=== PATIENT | male | born 1980 | race Caucasian/White ===

== ENCOUNTER 2019-10-23 14:39 | Outpatient (CLI) | payer BC, SELFPAY ==
[2019-10-23 14:53] LABS: Basophils Absolute Auto 0.1 K/mm3 (0.0-0.1); Basophils Percent Auto 0.8 % (0.2-1.2); Eosinophils Absolute Auto 0.2 K/mm3 (0-0.3); Eosinophils Percent Auto 2.3 % (0-4.4); Hematocrit 47.6 % (42.0-52.0); Hemoglobin 16.3 g/dL (14.0-18.0); Immature Granulocyte Absolute 0.02 K/mm3 (0.00-0.031); Immature Granulocyte Percent A 0.2 % (0-0.5); Lymphocytes Absolute Auto 2.59 K/mm3 (0.9-3.2); Lymphocytes Percent Auto 29.9 % (18.3-44.2); Mean Corpuscular HGB Conc 34.2 g/dl (32-36); Mean Corpuscular Hemoglobin 31.2 pg (26-34); Mean Platelet Volume 8.8 fl (7.4-10.4); Monocytes Absolute Auto 0.8 K/mm3 (0.1-0.6); Monocytes Percent Auto 8.8 % (2.6-8.5); Platelet Count Result 263 k/mm3 (150-375); Red Blood Count 5.23 M/mm3 (4.6-6.20); Red Cell Distribution Width 11.9 % (11.5-14.5); White Blood Count 8.7 K/mm3 (4.5-10.0)
[2019-10-23 16:39] LABS: Rheumatoid Factor 18.5 IU/ML (<12)
[2019-10-23 16:43] LABS: CRP < 0.5 mg/dL (<1.0)
[2019-10-23 16:44] LABS: Erythrocyte Sedimentation Rate 4 mm/hr (0-20)
[2019-10-23 17:10] LABS: Hepatitis B Surface Antigen Negative (Negative)
[2019-10-23 17:28] LABS: Hepatitis B Surface Anti Res Negative; Hepatitis C Virus Antibody Negative (Negative)
[2019-10-26 12:50] LABS: HLA B27 Negative (Negative)
[2019-10-26 22:06] LABS: NIL 0.03 IU/mL; Quantiferon TB Plus, 1T NEGATIVE (NEGATIVE); TB1-NIL 0.01 IU/mL; TB2-NIL 0.03 IU/mL
[2019-10-27 11:26] LABS: Anti Cyclic Citrullinated Pept >250 Units (<20)
== END 2019-10-23 14:40 | disposition home or self-care (01) ==
PROVIDERS: PCP Family Medicine; Referring Provider Family Medicine; Visit Provider Internal Medicine
DX: M19.90 Unspecified osteoarthritis, unspecified site (principal)
CPT/HCPCS: 36415; 84550; 85025; 85652; 86038; 86039; 86140; 86200; 86430; 86480; 86706; 86803; 86812; 87340

== ENCOUNTER 2019-11-26 14:20 | Outpatient (CLI) | payer BC, SELFPAY ==
--- NOTE | ~2019-11-26 | XR_ITS ---
EXAMINATION: XR foot RT standing 2V INDICATION: Unspecified osteoarthritis TECHNIQUE: Two views of the right foot are obtained. COMPARISON: None available FINDINGS: There is no fracture, dislocation, or subluxation. There is mild osteoarthritis of the midf oot. Dorsal and plantar calcaneal enthesophytes are noted. The soft tissues are unremarkable. IMPRESSION: 1. Mild mid foot osteoarthritis. Reviewed, dictated and finalized at location A.
--- NOTE | ~2019-11-26 | XR_ITS ---
EXAMINATION: XR foot LT standing 2V INDICATION: Unspecified osteoarthritis TECHNIQUE: Two views of the left foot are obtained. COMPARISON: None FINDINGS: There is no fracture, dislocation, or subluxation. There is mild osteoarthritis of the midf oot. The soft tissues are unremarkable. IMPRESSION: 1. Mild mid foot osteoarthritis. Reviewed, dictated and finalized at location A.
--- NOTE | ~2019-11-26 | XR_ITS ---
EXAMINATION: HAND-BHARATHI ARTHRITIS 3+VIEWS DATE: 11/26/2019 15:18 INDICATION: Unspecified osteoarthritis TECHNIQUE: Posteroanterior, lateral, and oblique views of the left and of the right hands as well as a ballcatchers view of both hands were obtained. COMPARISON: None. FINDINGS: There is moderate osteoarthritis at the second metacarpophalangeal joint. Mild osteoarthritis is seen in multiple interphalangeal joints, at the first metacarpophalangeal joint, and at the radiocarpal a nd distal radioulnar joints. Subchondral lucencies are noted in multiple carpal bones as well as at t he base of the second metacarpal. The soft tissues are unremarkable. There is no fracture. There is mild osteoarthritis at the left radiocarpal and distal radioulnar joints. Subchondral lucenc ies are noted in multiple carpal bones of the left wrist. There is no fracture. Soft tissues are unre markable. IMPRESSION: 1. Polyarticular osteoarthritis without acute osseous findings. Reviewed, dictated and finalized at location A.
--- NOTE | ~2019-11-26 | MR_ITS ---
EXAMINATION: MR sacroiliac jcha wo/w con DATE: 11/26/2019 16:32 INDICATION: Dorsalgia, unspecified. Inflammatory arthritis. Low back pain. TECHNIQUE: Magnetic resonance imaging (MRI) of the sacroiliac joints was performed without and with 1 9 mL MultiHance intravenous contrast. Sequences included sagittal PD-weighted FS FSE and axial obliqu e and coronal oblique T2-weighted FS FSE, T1-weighted FSE, and postcontrast T1-weighted FS FSE. COMPARISON: CT abdomen and pelvis 08/16/2018 FINDINGS: Bone alignment is normal. No fracture. The sacroiliac joints demonstrate tiny osteophytes. There are no erosions or synovitis at the sacroiliac joints. IMPRESSION: 1. Mild osteoarthritis of the sacroiliac joints. No evidence of inflammatory arthropathy. Reviewed, dictated and finalized at location A. IMPRESSION: 1. Mild osteoarthritis of the sacroiliac joints. No evidence of inflammatory ar thropathy.
[2019-11-26 15:34] LABS: Estimated Glomerular Filt Rate > 60
== END 2019-11-26 14:21 | disposition home or self-care (01) ==
PROVIDERS: PCP Family Medicine; Visit Provider Internal Medicine
DX: M54.9 Dorsalgia, unspecified (principal); M19.90 Unspecified osteoarthritis, unspecified site; M53.3 Sacrococcygeal disorders, not elsewhere classified; M19.072 Primary osteoarthritis, left ankle and foot; M19.041 Primary osteoarthritis, right hand; M19.042 Primary osteoarthritis, left hand; M19.071 Primary osteoarthritis, right ankle and foot
CPT/HCPCS: 36415; 72197; 73130; 73620; A9577

== ENCOUNTER 2020-01-21 14:11 | Outpatient (CLI) | payer BC, SELFPAY ==
[2020-01-21 14:35] LABS: Hematocrit 46.4 % (42.0-52.0); Hemoglobin 15.8 g/dL (14.0-18.0); Mean Corpuscular HGB Conc 34.1 g/dl (32-36); Mean Corpuscular Hemoglobin 30.8 pg (26-34); Mean Corpuscular Volume 90.4 fl (80-100); Mean Platelet Volume 8.9 fl (7.4-10.4); Platelet Count Result 274 k/mm3 (150-375); Red Blood Count 5.13 M/mm3 (4.6-6.20); Red Cell Distribution Width 11.6 % (11.5-14.5); White Blood Count 9.3 K/mm3 (4.5-10.0)
[2020-01-21 16:35] LABS: Add Urine Microscopic? NO; Appearance Urine Clear (Clear); Bilirubin Urine Negative (Negative); Blood Urine Negative (Negative); Color Urine Yellow (Yellow); Glucose Urine UA Negative (Negative); Ketones Urine Negative (Negative); Leukocyte Esterase Ur Negative LEU/UL (Negative); Nitrate Urine Negative (Negative); Protein Urine Negative (Negative); Urobilinogen Urine Negative mg/dL (<2.0)
[2020-01-21 16:52] LABS: Alanine Aminotransferase 44 U/L (4-50); Albumin Level 4.9 g/dL (3.5-5.1); Alkaline Phosphatase 104 U/L (38-126); Aspartate Amino Transferase 36 U/L (17-59); Bilirubin,Total 0.4 mg/dL (0.2-1.3); Blood Urea Nitrogen 11 mg/dL (9-20); CRP 0.6 mg/dL (<1.0); Calcium 9.7 mg/dL (8.4-10.2); Carbon Dioxide 26 mmol/L (22-30); Chloride 101 mmol/L (98-107); Estimated Glomerular Filt Rate > 60; Glucose 79 mg/dL (75-110); Potassium 4.1 mmol/L (3.4-5.0); Sodium 137 mmol/L (137-145)
[2020-01-21 16:54] LABS: Complement C3 147 mg/dL (88-165); Erythrocyte Sedimentation Rate 6 mm/hr (0-20)
[2020-01-23 09:54] LABS: SS-A <1.0; SS-B <1.0
[2020-01-24 02:48] LABS: Hexagonal Phase Confirm Negative (Negative); Lupus dRVVT 1:1 Mix Interpreta Not Indicated; Lupus dRVVT Screen 38 sec (<=45); PTT-LA Screen 41 sec (<=40)
[2020-01-28 09:20] LABS: SM Antibody <1.0; SM/RNP Antibody <1.0
== END 2020-01-21 14:12 | disposition home or self-care (01) ==
LOC: ANHLAB 14:13
PROVIDERS: PCP Family Medicine; Visit Provider Internal Medicine
DX: M19.90 Unspecified osteoarthritis, unspecified site (principal)
CPT/HCPCS: 36415; 80053; 81003; 85027; 85598; 85613; 85652; 85730; 86140; 86160; 86225; 86235

== ENCOUNTER 2020-02-26 15:31 | Outpatient (CLI) | payer BC, SELFPAY ==
[2020-02-26 15:44] LABS: Hematocrit 49.6 % (42.0-52.0); Hemoglobin 16.6 g/dL (14.0-18.0); Mean Corpuscular HGB Conc 33.5 g/dl (32-36); Mean Corpuscular Hemoglobin 30.9 pg (26-34); Mean Corpuscular Volume 92.2 fl (80-100); Platelet Count Result 257 k/mm3 (150-375); Red Blood Count 5.38 M/mm3 (4.6-6.20); White Blood Count 8.1 K/mm3 (4.5-10.0)
[2020-02-26 16:30] LABS: Add Urine Microscopic? YES; Appearance Urine Cloudy (Clear); Bilirubin Urine Negative (Negative); Blood Urine Negative (Negative); Color Urine Amber (Yellow); Glucose Urine UA Negative (Negative); Ketones Urine Negative (Negative); Leukocyte Esterase Ur Negative LEU/UL (Negative); Mucus Urine Rare /lpf; Nitrate Urine Negative (Negative); Protein Urine Negative (Negative); RBC Urine 0-2 /hpf (0-2); Urobilinogen Urine Negative mg/dL (<2.0)
[2020-02-26 16:33] LABS: Amorphous Sediment Urine Few
[2020-02-26 16:35] LABS: WBC Urine 0-3 /hpf
[2020-02-26 16:53] LABS: Erythrocyte Sedimentation Rate 3 mm/hr (0-20)
[2020-02-26 18:23] LABS: Alanine Aminotransferase 37 U/L (4-50); Albumin Level 4.8 g/dL (3.5-5.1); Alkaline Phosphatase 101 U/L (38-126); Aspartate Amino Transferase 30 U/L (17-59); Bilirubin,Total 0.4 mg/dL (0.2-1.3); Blood Urea Nitrogen 13 mg/dL (9-20); CRP < 0.5 mg/dL (<1.0); Calcium 9.6 mg/dL (8.4-10.2); Carbon Dioxide 26 mmol/L (22-30); Chloride 102 mmol/L (98-107); Estimated Glomerular Filt Rate > 60; Glucose 104 mg/dL (75-110); Sodium 138 mmol/L (137-145)
== END 2020-02-26 15:32 | disposition home or self-care (01) ==
LOC: ANHLAB 15:34
PROVIDERS: PCP Family Medicine; Visit Provider Internal Medicine
DX: M05.79 Rheumatoid arthritis with rheumatoid factor of multiple sites without organ or systems involvement (principal); M19.90 Unspecified osteoarthritis, unspecified site
CPT/HCPCS: 36415; 80053; 81001; 85027; 85652; 86140

== ENCOUNTER 2020-04-13 15:01 | Outpatient (CLI) | payer BC, SELFPAY ==
[2020-04-13 15:15] LABS: Hematocrit 47.6 % (42.0-52.0); Hemoglobin 16.3 g/dL (14.0-18.0); Mean Corpuscular HGB Conc 34.2 g/dl (32-36); Mean Corpuscular Hemoglobin 30.8 pg (26-34); Mean Corpuscular Volume 89.8 fl (80-100); Mean Platelet Volume 8.9 fl (7.4-10.4); Platelet Count Result 284 k/mm3 (150-375); White Blood Count 7.5 K/mm3 (4.5-10.0)
[2020-04-13 16:28] LABS: Add Urine Microscopic? YES; Appearance Urine Clear (Clear); Bacteria Urine Trace /hpf; Bilirubin Urine Negative (Negative); Blood Urine Negative (Negative); Color Urine Yellow (Yellow); Glucose Urine UA Negative (Negative); Ketones Urine Negative (Negative); Leukocyte Esterase Ur Negative LEU/UL (Negative); Mucus Urine Rare /lpf; Nitrate Urine Negative (Negative); Protein Urine 1+ mg/dL (Negative); Specific Grav Ur 1.025 (1.001-1.035); Urobilinogen Urine Negative mg/dL (<2.0); WBC Urine 0-3 /hpf
[2020-04-13 16:42] LABS: Alanine Aminotransferase 59 U/L (4-50); Albumin Level 4.8 g/dL (3.5-5.1); Alkaline Phosphatase 89 U/L (38-126); Anion Gap 10 mmol/L (8-16); Aspartate Amino Transferase 43 U/L (17-59); Bilirubin,Total 0.6 mg/dL (0.2-1.3); Blood Urea Nitrogen 12 mg/dL (9-20); CRP < 0.5 mg/dL (<1.0); Calcium 9.8 mg/dL (8.4-10.2); Carbon Dioxide 26 mmol/L (22-30); Chloride 102 mmol/L (98-107); Estimated Glomerular Filt Rate > 60; Glucose 89 mg/dL (75-110); Potassium 4.2 mmol/L (3.4-5.0); Sodium 138 mmol/L (137-145)
[2020-04-13 16:44] LABS: Erythrocyte Sedimentation Rate 5 mm/hr (0-20)
== END 2020-04-13 15:02 | disposition home or self-care (01) ==
LOC: ANHLAB 15:02
PROVIDERS: PCP Family Medicine; Visit Provider Internal Medicine
DX: M05.79 Rheumatoid arthritis with rheumatoid factor of multiple sites without organ or systems involvement (principal); M19.90 Unspecified osteoarthritis, unspecified site
CPT/HCPCS: 36415; 80053; 81001; 85027; 85652; 86140

== ENCOUNTER 2020-09-14 14:57 | Outpatient (CLI) | payer BC, SELFPAY ==
[2020-09-14 15:16] LABS: Hematocrit 44.1 % (42.0-52.0); Hemoglobin 14.9 g/dL (14.0-18.0); Mean Corpuscular HGB Conc 33.8 g/dl (32-36); Mean Corpuscular Hemoglobin 31.6 pg (26-34); Mean Corpuscular Volume 93.6 fl (80-100); Mean Platelet Volume 8.9 fl (7.4-10.4); Platelet Count Result 278 k/mm3 (150-375); Red Blood Count 4.71 M/mm3 (4.6-6.20); Red Cell Distribution Width 11.9 % (11.5-14.5); White Blood Count 8.4 K/mm3 (4.5-10.0)
[2020-09-14 16:31] LABS: Add Urine Microscopic? YES; Appearance Urine Clear (Clear); Bilirubin Urine Negative (Negative); Blood Urine Negative (Negative); Color Urine Yellow (Yellow); Glucose Urine UA Negative (Negative); Ketones Urine Negative (Negative); Leukocyte Esterase Ur Negative LEU/UL (Negative); Mucus Urine Rare /lpf; Nitrate Urine Negative (Negative); Protein Urine Negative (Negative); RBC Urine 0-2 /hpf (0-2); Specific Grav Ur 1.015 (1.001-1.035); Urobilinogen Urine Negative mg/dL (<2.0)
[2020-09-14 16:51] LABS: Erythrocyte Sedimentation Rate 7 mm/hr (0-20)
[2020-09-14 17:00] LABS: Alanine Aminotransferase 30 U/L (4-50); Albumin Level 4.4 g/dL (3.5-5.1); Alkaline Phosphatase 85 U/L (38-126); Anion Gap 6 mmol/L (8-16); Aspartate Amino Transferase 31 U/L (17-59); Bilirubin,Total 0.5 mg/dL (0.2-1.3); Blood Urea Nitrogen 8 mg/dL (9-20); Calcium 9.2 mg/dL (8.4-10.2); Carbon Dioxide 30 mmol/L (22-30); Chloride 103 mmol/L (98-107); Estimated Glomerular Filt Rate > 60; Glucose 90 mg/dL (75-110); Potassium 4.2 mmol/L (3.4-5.0); Sodium 139 mmol/L (137-145)
[2020-09-14 17:20] LABS: CRP < 0.5 mg/dL (<1.0)
== END 2020-09-14 14:58 | disposition home or self-care (01) ==
LOC: ANHLAB 14:58
PROVIDERS: PCP Family Medicine; Visit Provider Internal Medicine
DX: M05.79 Rheumatoid arthritis with rheumatoid factor of multiple sites without organ or systems involvement (principal); M19.90 Unspecified osteoarthritis, unspecified site; Z79.899 Other long term (current) drug therapy
CPT/HCPCS: 36415; 80053; 81001; 85027; 85652; 86140

== ENCOUNTER 2021-01-13 14:29 | Outpatient (CLI) | payer BC, SELFPAY ==
[2021-01-13 14:47] LABS: Hematocrit 46.9 % (42.0-52.0); Hemoglobin 15.9 g/dL (14.0-18.0); Mean Corpuscular HGB Conc 33.9 g/dl (32-36); Mean Corpuscular Hemoglobin 31.7 pg (26-34); Mean Corpuscular Volume 93.6 fl (80-100); Mean Platelet Volume 8.9 fl (7.4-10.4); Platelet Count Result 310 k/mm3 (150-375); Red Blood Count 5.01 M/mm3 (4.6-6.20); Red Cell Distribution Width 12.1 % (11.5-14.5); White Blood Count 8.9 K/mm3 (4.5-10.0)
[2021-01-13 14:58] LABS: Add Urine Microscopic? YES
[2021-01-13 14:59] LABS: Appearance Urine Sl Cloudy (Clear); Color Urine Yellow (Yellow); Glucose Urine UA Negative (Negative); Protein Urine Negative (Negative); Specific Grav Ur 1.005 (1.001-1.035); pH Urine 6.5 (5.0-9.0)
[2021-01-13 15:00] LABS: Bilirubin Urine Negative (Negative); Blood Urine Negative (Negative); Ketones Urine Negative (Negative); Leukocyte Esterase Ur Negative LEU/UL (Negative); Nitrate Urine Negative (Negative); Urobilinogen Urine 0.2 mg/dL (<2.0)
[2021-01-13 15:05] LABS: Bacteria Urine None seen /hpf
[2021-01-13 15:06] LABS: Amorphous Sediment Urine Moderate; RBC Urine None seen /hpf (0-2); Squamous Epithelial Cell Urine Few /hpf (Few); WBC Urine None seen /hpf (0-3)
[2021-01-13 16:43] LABS: Alanine Aminotransferase 52 U/L (4-50); Albumin Level 4.9 g/dL (3.5-5.1); Alkaline Phosphatase 81 U/L (38-126); Anion Gap 8 mmol/L (8-16); Aspartate Amino Transferase 45 U/L (17-59); Bilirubin,Total 0.6 mg/dL (0.2-1.3); Blood Urea Nitrogen 10 mg/dL (9-20); CRP 0.5 mg/dL (<1.0); Calcium 10.4 mg/dL (8.4-10.2); Carbon Dioxide 29 mmol/L (22-30); Chloride 104 mmol/L (98-107); Estimated Glomerular Filt Rate > 60; Glucose 94 mg/dL (75-110); Potassium 4.1 mmol/L (3.4-5.0); Sodium 141 mmol/L (137-145)
[2021-01-13 18:08] LABS: Erythrocyte Sedimentation Rate 6 mm/hr (0-20)
== END 2021-01-13 14:30 | disposition home or self-care (01) ==
LOC: ANHLAB 14:33
PROVIDERS: PCP Family Medicine; Visit Provider Internal Medicine
DX: H20.9 Unspecified iridocyclitis (principal); M05.79 Rheumatoid arthritis with rheumatoid factor of multiple sites without organ or systems involvement; M19.90 Unspecified osteoarthritis, unspecified site; Z79.899 Other long term (current) drug therapy
CPT/HCPCS: 36415; 80053; 81001; 85027; 85652; 86140

== ENCOUNTER 2021-09-28 11:27 | Outpatient (CLI) | payer BC, SELFPAY ==
[2021-09-28 11:37] LABS: Hematocrit 47.4 % (42.0-52.0); Hemoglobin 15.6 g/dL (14.0-18.0); Mean Corpuscular HGB Conc 32.9 g/dl (32-36); Mean Corpuscular Hemoglobin 32.2 pg (26-34); Mean Corpuscular Volume 97.7 fl (80-100); Mean Platelet Volume 9.2 fl (7.4-10.4); Platelet Count Result 267 k/mm3 (150-375); Red Blood Count 4.85 M/mm3 (4.6-6.20); White Blood Count 5.7 K/mm3 (4.5-10.0)
[2021-09-28 13:07] LABS: Erythrocyte Sedimentation Rate 1 mm/hr (0-20)
[2021-09-28 13:12] LABS: Alanine Aminotransferase 29 U/L (4-50); Albumin Level 4.9 g/dL (3.5-5.1); Alkaline Phosphatase 91 U/L (38-126); Anion Gap 8 mmol/L (8-16); Aspartate Amino Transferase 71 U/L (17-59); Bilirubin,Total 0.8 mg/dL (0.2-1.3); Blood Urea Nitrogen 11 mg/dL (9-20); CRP < 0.5 mg/dL (<1.0); Calcium 9.5 mg/dL (8.4-10.2); Carbon Dioxide 27 mmol/L (22-30); Chloride 104 mmol/L (98-107); Estimated Glomerular Filt Rate > 60; Glucose 96 mg/dL (65-110); Sodium 139 mmol/L (137-145)
== END 2021-09-28 11:28 | disposition home or self-care (01) ==
PROVIDERS: Internal Medicine; PCP Family Medicine; Visit Provider Internal Medicine Hematology & Oncology
DX: M05.79 Rheumatoid arthritis with rheumatoid factor of multiple sites without organ or systems involvement (principal); M19.90 Unspecified osteoarthritis, unspecified site
CPT/HCPCS: 36415; 80053; 85027; 85652; 86140

== ENCOUNTER 2022-02-28 15:12 | Outpatient (CLI) | payer BC, SELFPAY ==
[2022-02-28 15:36] LABS: Basophils Absolute Auto 0.1 K/mm3 (0.0-0.1); Eosinophils Absolute Auto 0.1 K/mm3 (0-0.3); Eosinophils Percent Auto 1.5 % (0-4.4); Hematocrit 44.1 % (42.0-52.0); Hemoglobin 14.8 g/dL (14.0-18.0); Immature Granulocyte Absolute 0.04 K/mm3 (0.00-0.031); Immature Granulocyte Percent A 0.6 % (0-0.5); Lymphocytes Absolute Auto 1.99 K/mm3 (0.9-3.2); Lymphocytes Percent Auto 27.8 % (18.3-44.2); Mean Corpuscular HGB Conc 33.6 g/dl (32-36); Mean Corpuscular Hemoglobin 32.1 pg (26-34); Mean Corpuscular Volume 95.7 fl (80-100); Monocytes Absolute Auto 0.8 K/mm3 (0.1-0.6); Monocytes Percent Auto 11.5 % (2.6-8.5); Neutrophils Absolute Auto 4.1 K/mm3 (1.3-6.7); Neutrophils Percent Auto 57.6 % (45.5-73.1); Platelet Count Result 259 k/mm3 (150-375); Red Blood Count 4.61 M/mm3 (4.6-6.20); Red Cell Distribution Width 12.5 % (11.5-14.5); White Blood Count 7.2 K/mm3 (4.5-10.0)
[2022-02-28 16:38] LABS: Appearance Urine Clear (Clear); Bilirubin Urine Negative (Negative); Blood Urine Negative (Negative); Color Urine Yellow (Yellow); Glucose Urine UA Negative (Negative); Ketones Urine Trace mg/dL (Negative); Leukocyte Esterase Ur Negative LEU/UL (Negative); Nitrate Urine Negative (Negative); Protein Urine 1+ mg/dL (Negative); Specific Grav Ur 1.015 (1.001-1.035); Urobilinogen Urine 0.2 mg/dL (<2.0); pH Urine 8.5 (5.0-9.0)
[2022-02-28 16:43] LABS: Mucus Urine Rare /lpf; WBC Urine 0-3 /hpf
[2022-02-28 16:46] LABS: Add Urine Microscopic? YES
[2022-02-28 16:56] LABS: Erythrocyte Sedimentation Rate 6 mm/hr (0-20)
[2022-02-28 21:41] LABS: Alanine Aminotransferase 79 U/L (6-50); Albumin Level 4.4 g/dL (3.5-5.1); Alkaline Phosphatase 78 U/L (38-126); Anion Gap 3 mmol/L (8-16); Aspartate Amino Transferase 49 U/L (17-59); Bilirubin,Total 0.4 mg/dL (0.2-1.3); Blood Urea Nitrogen 9 mg/dL (9-20); Carbon Dioxide 28 mmol/L (22-30); Chloride 107 mmol/L (98-107); Estimated Glomerular Filt Rate > 60; Glucose 87 mg/dL (65-110); Potassium 4.1 mmol/L (3.4-5.0); Sodium 138 mmol/L (137-145)
== END 2022-02-28 15:13 | disposition home or self-care (01) ==
LOC: ANHLAB 15:13
PROVIDERS: PCP Family Medicine; Visit Provider Internal Medicine
DX: M06.9 Rheumatoid arthritis, unspecified (principal); Z79.899 Other long term (current) drug therapy
CPT/HCPCS: 36415; 80053; 81001; 85025; 85652

== ENCOUNTER 2022-07-22 12:52 | Outpatient (CLI) | payer BC, SELFPAY ==
[2022-07-22 13:01] LABS: Hematocrit 43.8 % (42.0-52.0); Hemoglobin 14.9 g/dL (14.0-18.0); Mean Corpuscular Hemoglobin 32.3 pg (26-34); Mean Platelet Volume 8.9 fl (7.4-10.4); Platelet Count Result 275 k/mm3 (150-375); Red Blood Count 4.61 M/mm3 (4.6-6.20); Red Cell Distribution Width 12.2 % (11.5-14.5); White Blood Count 9.8 K/mm3 (4.5-10.0)
[2022-07-22 14:25] LABS: Appearance Urine Clear (Clear); Bilirubin Urine Negative (Negative); Blood Urine Negative (Negative); Color Urine Yellow (Yellow); Glucose Urine UA Negative (Negative); Ketones Urine Negative (Negative); Leukocyte Esterase Ur Negative LEU/UL (Negative); Nitrate Urine Negative (Negative); Protein Urine Trace mg/dL (Negative); Urobilinogen Urine 0.2 mg/dL (<2.0); pH Urine 7.5 (5.0-9.0)
[2022-07-22 14:29] LABS: RBC Urine 0-2 /hpf (0-2); Squamous Epithelial Cell Urine Rare /hpf (Few); WBC Urine 0-3 /hpf
[2022-07-22 14:30] LABS: Add Urine Microscopic? YES
[2022-07-22 14:40] LABS: Alanine Aminotransferase 27 U/L (6-50); Albumin Level 4.9 g/dL (3.5-5.1); Alkaline Phosphatase 85 U/L (38-126); Anion Gap 6 mmol/L (8-16); Aspartate Amino Transferase 30 U/L (17-59); Bilirubin,Total 0.6 mg/dL (0.2-1.3); Blood Urea Nitrogen 12 mg/dL (9-20); CRP < 0.5 mg/dL (<1.0); Carbon Dioxide 27 mmol/L (22-30); Chloride 102 mmol/L (98-107); Estimated Glomerular Filt Rate > 60; Glucose 113 mg/dL (65-110); Potassium 3.7 mmol/L (3.4-5.0); Sodium 135 mmol/L (137-145)
[2022-07-22 14:50] LABS: Erythrocyte Sedimentation Rate 5 mm/hr (0-20)
== END 2022-07-22 12:53 | disposition home or self-care (01) ==
LOC: ANHLAB 12:53
PROVIDERS: PCP Family Medicine; Visit Provider Internal Medicine
DX: M05.79 Rheumatoid arthritis with rheumatoid factor of multiple sites without organ or systems involvement (principal); M19.90 Unspecified osteoarthritis, unspecified site
CPT/HCPCS: 36415; 80053; 81001; 85027; 85652; 86140

== ENCOUNTER 2023-03-01 13:48 | Outpatient (CLI) | payer BC, SELFPAY ==
[2023-03-01 14:03] LABS: Hematocrit 46.5 % (42.0-52.0); Hemoglobin 16.1 g/dL (14.0-18.0); Mean Corpuscular HGB Conc 34.6 g/dl (32-36); Mean Corpuscular Hemoglobin 32.4 pg (26-34); Mean Corpuscular Volume 93.6 fl (80-100); Mean Platelet Volume 9.1 fl (7.4-10.4); Platelet Count Result 299 k/mm3 (150-375); Red Blood Count 4.97 M/mm3 (4.6-6.20); Red Cell Distribution Width 11.7 % (11.5-14.5); White Blood Count 8.6 K/mm3 (4.5-10.0)
[2023-03-01 14:41] LABS: Appearance Urine Clear (Clear); Bilirubin Urine Negative (Negative); Blood Urine Negative (Negative); Color Urine Yellow (Yellow); Glucose Urine UA Negative (Negative); Ketones Urine Negative (Negative); Leukocyte Esterase Ur Negative LEU/UL (Negative); Nitrate Urine Negative (Negative); Protein Urine Negative (Negative); Specific Grav Ur 1.021 (1.001-1.035); Urobilinogen Urine 0.2 mg/dL (<2.0); pH Urine 6.5 (5.0-9.0)
[2023-03-01 14:47] LABS: Add Urine Microscopic? NO
[2023-03-01 15:01] LABS: Erythrocyte Sedimentation Rate 5 mm/hr (0-20)
[2023-03-01 16:25] LABS: Alanine Aminotransferase 50 U/L (6-50); Albumin Level 4.7 g/dL (3.5-5.1); Alkaline Phosphatase 100 U/L (38-126); Anion Gap 7 mmol/L (8-16); Aspartate Amino Transferase 37 U/L (17-59); Bilirubin,Total 0.5 mg/dL (0.2-1.3); Blood Urea Nitrogen 14 mg/dL (9-20); CRP < 0.5 mg/dL (<1.0); Calcium 9.5 mg/dL (8.4-10.2); Carbon Dioxide 28 mmol/L (22-30); Chloride 103 mmol/L (98-107); Estimated Glomerular Filt Rate > 60; Glucose 98 mg/dL (65-110); Sodium 138 mmol/L (137-145)
== END 2023-03-01 13:49 | disposition home or self-care (01) ==
PROVIDERS: Internal Medicine; PCP Family Medicine; Visit Provider Internal Medicine Hematology & Oncology
DX: M05.79 Rheumatoid arthritis with rheumatoid factor of multiple sites without organ or systems involvement (principal); M19.90 Unspecified osteoarthritis, unspecified site
CPT/HCPCS: 36415; 80053; 81003; 85027; 85652; 86140

== ENCOUNTER 2024-09-24 08:14 | Outpatient (CLI) | payer BC, SELFPAY ==
--- OUTSIDE RECORDS SUMMARY | 2024-09-24 08:32 | XMS_ITS | Referral Summary ---
Author Organization [facility] Address [address] [place] [address] Care Team Providers Care Kids Activities Coach Name Role Phone Lissy Zuñiga NP Primary Care Provider [phone] Encounters Date Type Department Care Team Description 08/13/2024 Telephone [facility] [address] [place] [address] Nikki Kendrick RPh Prior Auth (Rinvoq ) from Last 3 Months Allergies No known active allergies Medications lamoTRIgine (LaMICtal) 200 mg tablet daily 04/11/2018 Active QUEtiapine (SEROquel) 50 mg tablet Take 1 tablet (50 mg total) by mouth nightly at bedtime. 03/01/2021 Active amLODIPine (NORVASC) 5 mg tablet Take 1 tablet (5 mg total) by mouth daily 12/22/2023 Active omeprazole (PriLOSEC) 20 mg capsule Take 1 capsule (20 mg total) by mouth daily 03/18/2024 Active terbinafine (LamiSIL) 250 mg tablet Take 1 tablet (250 mg total) by mouth daily 03/18/2024 Active acyclovir (ZOVIRAX) 400 mg tabletIndicatio ns:Prophylaxis, Medical Take 1 tablet (400 mg total) by mouth daily 90 tablet 3 06/05/2024 Active Rinvoq 15 mg tablet extended release 24 hrIndications:R heumatoid arthritis involving multiple sites with positive rheumatoid factor (CMS/HCC) (HCC) Take 15 mg by mouth daily 90 tablet 1 08/12/2024 Active Active Problems Problem Noted Date Diagnosed Date Photophobia of right eye 03/25/2022 Assessment & Plan (04/02/2024 1:40 PM CDT): 2/2 iris atrophy/herpetic uveitis, recommend contact lens (CL) eval with Dr. 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 He may purchase SVN and glasses, as he is often frustrated with his bifocal lenses. 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 Not visually significant at this time. Continue to monitor. Assessment & Plan (09/05/2018 8:30 AM BENEFITS CLERK): -- NVS -- Observe Iris atrophy, right 12/02/2015 Assessment & Plan (05/03/2024 10:01 AM CDT): Contact lens (CL) eval for photophobia right eye (OD) Patient has not worn contact lenses before Pupil slightly decentered inf nasal Tried [employer] Driss Fraga in office - patient is bothered by comfort of lens, unsure if helping with light sensitivity Would like to try out at home, will give call if lens is working or wants to try custom Yves lens If proceed with Yves lens - may need to decenter pupil after initial lens arrives (U3, 54, 47) Educated on I&R and proper care of lenses RTC prn, if decides to move forward with yves will schedule when lens arrives Assessment & Plan (09/05/2018 8:29 AM BENEFITS CLERK): -- c/w HSV uveitis -- observe Chronic uveitis 12/02/2015 Overview (03/19/2020): Recurrent UL NG 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 No signs of inflammation noted today. Continue taking prophylactic Acyclovir, 400 mg PO Daily. Refill sent to pharmacy. RTC should signs or symptoms return. Assessment & Plan (03/25/2022 9:33 AM CDT): Herptic, normal intraocular pressure (IOP), RTC with flare, annual exam Assessment & Plan (03/26/2021 2:01 PM CDT): Current ocular medications Acyclovir 400mg daily Rinvoq and leflunomide for RA Dr. Ram is his shoe stitcher odd No inflammation on acyclovir (last flare 08/2018) Plan Continue acyclovir 400mg daily Q12m fu with Dr. Marie Assessment & Plan (10/06/2020 2:41 PM BENEFITS CLERK): Quiet today with normal intraocular pressure (IOP). Continue 400 mg Acyclovir daily. Assessment & Plan (03/19/2020 3:50 PM CDT): Current ocular medications Acyclovir 400mg daily Rinvoq and leflunomide for RA Dr. Ram is his shoe stitcher odd No inflammation on acyclovir (last flare 08/2018) Plan Continue acyclovir 400mg daily Q6m fu with Dr. 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 Maintain scheduled FUV with Dr. Banks Assessment & Plan (09/05/2018 8:30 AM BENEFITS CLERK): Symptoms and exam consistent with anterior uveitis flare. Possibly related to HSV, as he has been off acyclovir for the past 6 months. Also with hx of RA, has been off of systemic txt for years. -- IOP improved on combigan -- AC reaction improved on durezol q4h and acyclovir 400 mg 5x/day -- cyclogyl bid to prevent further synechiae -- Continue current regimen -- given that pt previously needed PO prednisone to quiet AC reaction, will schedule for follow up with Dr. Duran -- return precautions discussed Assessment & Plan (09/01/2018 3:49 PM BENEFITS CLERK): Symptoms and exam consistent with anterior uveitis flare. Possibly related to HSV, as he has been off acyclovir for the past 6 months. Also with hx of RA, has been off of systemic txt for years. With IOP spike to around 40. -- durezol q4h given 4+ AC cell -- cyclogyl bid -- combigan bid (avoiding LAURO given hx renal stones with stenting) -- acyclovir 400 mg 5x/day -- follow up with Dr. Duran in [facility] this week to recheck pressure and inflammation -- return precautions discussed Social History Tobacco Use Types Packs/Day Years Used Date Smoking Tobacco: Never Smokeless Tobacco: Never Alcohol Use Standard Drinks/Week Comments Never 0 (1 standard drink = 0.6 oz pur e alcohol) AUDIT-C Answer Date Recorded Q1: How often do you have a drink containing alcohol? 4 or more times a week 01/22/2024 Average Number of Drinks Not on file 024 Q3: How often do you have si x or more drinks on one occasion? Never 01/22/2024 Sex and Gender Information Value Date Recorded Sex Assigned at Not on file Legal Sex Male 10:04 AM BENEFITS CLERK Gender Identity Not on file Sexual Orientation Not on file Last Filed Vital Signs Vital Sign Reading Time Taken Comments Blood Pressure 133/85 01/22/2024 2:28 PM CDT Pulse 90 01/22/2024 2:28 PM CDT Temperature 36.9 ??C (98.4 ??F) 01/22/2024 2:28 PM CD T Respiratory Rate 16 04/30/2019 2:20 PM CDT Oxygen Saturation 95% 01/22/2024 2:28 PM CDT Inhaled Oxygen Concentration - - Weight 98.4 kg (217 lb) 01/22/2024 2:28 PM CDT Height 182.9 cm (6') 01/22/2024 2:28 PM CDT Body Mass Index 29.43 01/22/2024 2:28 PM CDT Plan of Treatment Not on file Medical Devices Implanted Type Area Pest Technician Device Identifier Shelf Expiration Date Model / Serial / Lot [employer] [id number] Inlay Kopperl 6fr 28cm Pusher Fluoro Marker Atraumatic Insertion Latex Free - [id number] Implanted:Qty: 1 on 04/30/2019 by Bandar Henley MD at [facility] Explanted:04/21 by Referral, Self (Quantity not on file) Right: Urethra [employer] [id number] 06/27/2023 [id number] / / [id number] Description:The patient was been instructed to remove the stent by pulling on the string in 3-4 days' Insurance [employer] OOS [employer] ACCESS BLUE ACCESS OOS BLUE ACCESS OOS Care Teams Kids Activities Coach Relationship Specialty Start Date End Date Lissy Zuñiga NP [address] [place] [id number] PCP - General Nurse Practitioner 09/01/23
--- OUTSIDE RECORDS SUMMARY | 2024-09-24 08:32 | XMS_ITS | Clinical Summary ---
Author Organization [facility] Address [address] [place] [address]. [place], [place] [address] [place] [address] Care Team Providers Care Hammer Shop Supervisor Name Role Phone Genny oMore Primary Care Provider [phone] Social History Tobacco Use Types Packs/Day Years Used Date Smoking Tobacco: Never Assessed Sex and Gender Information Value Date Recorded Sex Assigned at Not on file Legal Sex Male 7:47 PM CDT Gender Identity Not on file Sexual Orientation Not on file Last Filed Vital Signs Vital Sign Reading Time Taken Comments Blood Pressure 118/80 12/15/2014 1:16 PM CDT Pulse 73 12/15/2014 1:16 PM CDT Temperature - - Respiratory Rate - - Oxygen Saturation - - Inhaled Oxygen Concentration - - Weight 87.5 kg (193 lb) 12/15/2014 1:16 PM CDT Height 182.9 cm (6') 12/15/2014 1:16 PM CDT Body Mass Index 26.18 12/15/2014 1:16 PM CDT Plan of Treatment Health Maintenance Due Date Last Done Comments Colorectal Cancer Screening Colonoscopy (10 Years) 1978 Annual Physical 1981 Hepatitis C 1996 DTaP, Tdap and Td Vaccines ( 1 - Tdap) 1997 Hepatitis B Vaccines (1 of 3 - 19+ 3-dose series) 1997 COVID-19 Vaccine (2023-2 5 season) 2024 11/12/2020, 10/22/2020 Influenza Adult (#1) 2024 Meningococcal B Vaccine Aged Out No l onger eligible based on patient's age to complete this topic Meningococcal Vaccine Aged Out No sandee kamran eligible based on patient's age to complete this topic Pneumococcal Vaccine: Pediatrics (0 to 5 Years) and At-Risk Patients (6 to 64 Years) Aged Out No longer eligible b ased on patient's age to complete this topic RSV Immunizations Under 20 Months Aged Out No longer eligible b ased on patient's age to complete this topic Insurance [facility] Care Teams Hammer Shop Supervisor Relationship Specialty Start Date End Date Genny Moore DO PCP - General FAMILY PRACTICE 03/04/21
--- OUTSIDE RECORDS SUMMARY | 2024-09-24 08:32 | XMS_ITS | Encounter Summary ---
Author Organization [facility] [employer] [facility] Address [address] [place] [address] Phone Care Team Providers Care Account Manager Education Name Role Phone Genny Moore DO Primary Care Provider + Lissy Zuñiga NP Primary Care Provider [phone] Encounter Details Date Type Department Care Team (Late st Contact Info) Description 03/19/2019 Orders Only [facility] ([facility]) - [facility] [address] [place] [address] [place] [address] Beena Dupont MD [address] [place] [address] Research exam (Primary Dx) Social History Tobacco Use Types Packs/Day Years Used Date Smoking Tobacco: Never Smokeless Tobacco: Never Alcohol Use Standard Drinks/Week Comments Never 0 (1 standard drink = 0.6 oz pur e alcohol) AUDIT-C Answer Date Recorded Frequency of Alcohol Consumption Never 10/22/2018 Average Number of Drinks Not on file 019 Frequency of Binge Drinking Not on file 11/2018 Sex and Gender Information Value Date Recorded Sex Assigned at Not on file Legal Sex Male 10:04 AM MANUFACTURE SPECIALIST Gender Identity Not on file Sexual Orientation Not on file documented as of this encounter Plan of Treatment Not on file documented as of this encounter Visit Diagnoses Diagnosis Research exam- Primary documented in this encounter Care Teams Account Manager Education Relationship Specialty Start Date End Date Genny Moore DO [facility] [place] [address] PCP - General 07/12/17 08/31/23 Lissy Zuñiga NP [address] [place] [address] PCP - General Nurse Practitioner 09/01/23 documented as of this encounter
--- OUTSIDE RECORDS SUMMARY | 2024-09-24 08:32 | XMS_ITS | Clinical Summary ---
Author Organization [facility] Address [address] [place] [address] Care Team Providers Care Medicaid Biller Name Role Phone Lissy Zuñiga NP Primary Care Provider [phone] Allergies No known active allergies Medications lamoTRIgine [...] lenses. 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 Not visually significant at this time. Continue to monitor. Assessment & Plan (09/05/2018 8:30 AM BALL ASSEMBLER): -- NVS -- Observe Iris atrophy, right [...] is working or wants to try custom Atkinson lens If proceed with Atkinson lens - may need to decenter pupil after initial lens arrives (U3, 54, 47) Educated on I&R and proper care of lenses RTC prn, if decides to move forward with edgardo will schedule when lens arrives Assessment & Plan (09/05/2018 8:29 AM BALL ASSEMBLER): -- c/w HSV uveitis -- observe Chronic [...] leflunomide for RA Dr. Ram is his ged tutor No inflammation on acyclovir (last flare 08/2018) Plan Continue acyclovir 400mg daily Q12m fu with Dr. Marie Assessment & Plan (10/06/2020 2:41 PM BALL ASSEMBLER): Quiet today with normal intraocular pressure (IOP). Continue 400 mg Acyclovir daily. Assessment & Plan (03/19/2020 3:50 PM CDT): Current ocular medications Acyclovir 400mg daily Rinvoq and leflunomide for RA Dr. Ram is his ged tutor No inflammation on acyclovir (last flare 08/2018) Plan Continue acyclovir 400mg daily Q6m fu with Dr. 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 Maintain scheduled FUV with Dr. Banks Assessment & Plan (09/05/2018 8:30 AM BALL ASSEMBLER): Symptoms and exam consistent with anterior uveitis [...] discussed Assessment & Plan (09/01/2018 3:49 PM BALL ASSEMBLER): Symptoms and exam consistent with anterior uveitis [...] pressure and inflammation -- return precautions discussed Encounters Date Type Department Care Team Description 08/13/2024 Telephone [facility] [address] [place] [address] Nikki Kendrick RPh Prior Auth (Rinvoq ) from Last 3 Months Surgical History Surgery Date Site/Laterality Comments PERCUTANEOUS NEPHROLITHOTRIPSY VASECTOMY KIDNEY STONE SURGERY Medical History Medical History Date Comments Anterior uveitis 01/30/2014 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 12/02/2015 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 Chronic uveitis 12/02/2015 Attention deficit disorder of adult with hyperac tivity 03/02/2015 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 Rheumatoid arthritis (HCC) 01/30/2014 Kidney stones ADHD (attention deficit hyperactivity disorder) Family History Medical History Relation Name Comments No Known Problems Brother Cataracts Father Cataracts Mother Diabetes Neg Hx Glaucoma Neg Hx Macular degeneration Neg Hx Retinal detachment Neg Hx Thyroid disease Neg Hx Relation Name Status Comments Brother Alive Father Alive Mother Alive Social History Tobacco Use Types Packs/Day Years [...] on file Legal Sex Male 10:04 AM BALL ASSEMBLER Gender Identity Not on file Sexual Orientation Not on file Obstetrics History Last Filed Vital Signs Vital Sign Reading [...] 01/22/2024 2:28 PM CDT Plan of Treatment Health Maintenance Due Date Last Done Comments Colon Cancer Screening-Colonoscopy 1978 Depression Screening 1978 Hepatitis C Screening 1978 DTaP/Tdap/Td Vaccine (1 - Tdap) 1989 Hepatitis B Screening 1996 Regular Well Visit/Exam 18-64 1996 Influenza Vaccine (#1) 2024 HPV Vaccines Aged Out No longer eligi ble based on patient's age to complete this topic Pneumococcal vaccine <65 Aged Out No longer eligible based on patient's age to complete this topic Medical Devices Implanted Type Area Calender Roll Press Operator Device Identifier Shelf Expiration Date Model / Serial / Lot [employer] [id number] Inlay [place] 6fr 28cm Pusher Fluoro Marker Atraumatic Insertion Latex Free - [id number] Implanted:Qty: 1 on 04/30/2019 by Bandar Henley MD at [facility] Explanted:04/21 by Referral, Self (Quantity not on file) Right: Urethra [employer] [id number] 06/27/2023 [id number] / / [id number] Description:The patient was been instructed to remove the stent by pulling on the string in 3-4 [place] [address] [facility] OOS ANTHEM ACCESS CHOICE [employer] ACCESS BLUE ACCESS OOS BLUE ACCESS OOS Care Teams Medicaid Biller Relationship Specialty Start Date End Date Lissy Zuñiga NP [address] [place] [address] PCP - General Nurse Practitioner 09/01/23
--- NOTE | 2024-09-24 08:34 | ECG_ITS ---
Test Date: 2024-09-24 08:42:57 Measurements Intervals [place] Rate: 70 P: 48 HI: 163 QRS: -19 QRSD: 103 T: -4 QT: 372 QTc: 403 Interpretive Statements SINUS RHYTHM INCOMPLETE RIGHT BUNDLE BRANCH BLOCK BORDERLINE T WAVE ABNORMALITY- INFERIOR LEADS BASELINE ARTIFACT- I, II, III, AVR, AVL, AVF BORDERLINE ECG No previous ECG available for comparison Electronically Signed On 09-24-2024 08:48:34 CUT OUT AND MARKING MACHINE OPERATOR by Ion Carrillo D.O.
== END 2024-09-24 08:15 | disposition home or self-care (01) ==
LOC: ANHSURGERY 08:20
PROVIDERS: PCP Nurse Practitioner Family; Visit Provider Surgery
DX: I10 Essential (primary) hypertension (principal); Z01.818 Encounter for other preprocedural examination
CPT/HCPCS: 93005

== ENCOUNTER 2024-09-30 03:10 | Day surgery (SDC) | payer BC, SELFPAY ==
[2024-09-18 13:45] VITALS: BMI 29.1
--- NOTE | 2024-09-18 14:22 | PC.NURSE ---
Report to the Outpatient Waiting Room, entrance under the green pavilion located off [facility], at time _10:00 on date _09/30/24 . Planned Procedure Time: _12:00 .? Time changes happen often and if your time is changed the preop area will call you the afternoon before. - You and your visitor will be asked to self-screen and do not enter if you have any COVID symptoms. Please call surgeon if you need to reschedule. - A mask is optional within the hospital at this time. Patients may have clear liquids (water, carbonated beverages, clear teas, apple juice) until 3 hours prior to surgery with a maximum of 20 ounces. - No food from midnight until time of surgery and no smoking. This includes no chewing gum, candy or mints. - Infants may have breast milk until 4 hours before surgery, infant formula 6 hours prior to surgery. - Children will be allowed to drink immediately following surgery.? If applicable, please bring a bottle or sippy cup to assist with drinking. Juice, water, soda, and popsicles are readily available.? For infants on formula, please bring formula the day of surgery.? Pacifiers are allowed. Take only the following medications with a SIP of water on the morning of surgery: _N/A DO NOT STOP ANY OF YOUR OTHER PRESCRIPTION MEDICATIONS PRIOR TO SURGERY EXCEPT THE FOLLOWING Medications to discontinue per physician __N/A Date to take last dose Please no make-up, nail romanian, hairspray, perfume, deodorant, or body powder the day of surgery.? No jewelry (including any body piercings) or valuables the day of surgery, leave them at home.? Please take a shower or bath the night before, or the morning of, surgery with an antibacterial soap.? Wear comfortable, loose fitting clothing.? Children are encouraged to wear pajamas. - Jewelry must be removed prior to entering the operating room.? Rings and piercings that are not removed may be cut off. - The hospital will not accept responsibility for valuables.? - Please leave all valuables, including medications, at home the day of surgery. If you are going home after surgery, a licensed seasonal delivery driver must drive you home.? - NO public transportation without another adult if you receive anesthesia. - We recommend that an adult stay with you for 24 hours following discharge. - We also recommend that you do not drive, make important decision, drink alcoholic beverages, or take any drugs that were not prescribed by your health care provider for at least 24 hours after your discharge time. For Pediatric surgeries, we recommend two adults accompany the child home. Hold all vitamins and supplements for 3 days per anesthesiologist. Follow any additional instructions given to you from your surgeon. Telephone instructions given to Haresh and asked if any additional questions and then verbalized understanding. Patient advised to call surgeon office or pre surgery nurse liaison [phone] if any additional questions.
[2024-09-30] VITALS (10 sets, daily range): BP systolic 94–139; BP diastolic 59–100; PULSE 67–78; RESP 12–18; TEMP 36.3; O2SAT 96–99; BMI 4107.1; BMI 28.5
--- OUTSIDE RECORDS SUMMARY | 2024-09-30 03:17 | XMS_ITS ---
Author Organization [facility] Address [address] [place] [address] Care Team Providers Care National Sales Name Role Phone Milagro Arellano Primary Care Provider REASON FOR VISIT med refill Encounters Encounter Location Date Provider Diagnosis [address] [place] [address] 08/19/2024 Milagro Arellano Plan Of Treatment No Information Progress Notes * Jina CARDOZAOB:1980 (44 yo M)Acc No.[id number]:08/19/2024 Patient: Patrice MADRIDLIANAAbielen :1980 A ge:44 Y S ex:Male Address:[address] [place], [address] * true * Date: Generated for Dudleyi ng/Farkg/eTransmitting on: 0 09/30/2024 03:17 AM DIAL MOUNTER
--- OUTSIDE RECORDS SUMMARY | 2024-09-30 03:18 | XMS_ITS | Referral Summary ---
Author Organization [facility] Address [address] [place] [address] Care Team Providers Care Account Development Specialist Name Role Phone Lissy Zuñiga NP Primary Care Provider [phone] Encounters Date Type Department Care Team Description 08/13/2024 Telephone [facility] [address] [place] [address] Nikki Kendrick RPh Prior Auth [...] lenses. 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 Not visually significant at this time. Continue to monitor. 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 Marie Assessment & Plan (10/06/2020 2:41 PM CHILD DEVELOPMENT DIRECTOR): Quiet today with normal intraocular pressure (IOP). Continue 400 mg Acyclovir daily. 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 Maintain scheduled FUV with Dr. Banks Assessment & Plan (09/05/2018 8:30 AM CHILD DEVELOPMENT DIRECTOR): Symptoms and exam consistent with anterior uveitis [...] discussed Assessment & Plan (09/01/2018 3:49 PM CHILD DEVELOPMENT DIRECTOR): Symptoms and exam consistent with anterior uveitis [...] on file Legal Sex Male 10:04 AM CHILD DEVELOPMENT DIRECTOR Gender Identity Not on file Sexual Orientation Not on file Last Filed Vital Signs Vital Sign Reading Time Taken Comments Blood Pressure 133/85 01/22/2024 2:28 PM CDT Pulse 90 01/22/2024 2:28 PM CDT Temperature 36.9 C (98.4 F) 01/22/2024 2:28 PM CDT Respiratory Rate 16 04/30/2019 2:20 PM CDT Oxygen Saturation 95% 01/22/2024 2:28 PM CDT Inhaled Oxygen Concentration - - Weight 98.4 kg (217 lb) 01/22/2024 2:28 PM CDT Height 182.9 cm (6') 01/22/2024 2:28 PM CDT Body Mass Index 29.43 01/22/2024 2:28 PM CDT Plan of Treatment Not on file Medical Devices Implanted Type Area Linux Admin Device Identifier Shelf Expiration Date Model / Serial / Lot [employer] [id number] Inlay Kahlotus 6fr 28cm Pusher Fluoro Marker Atraumatic Insertion Latex Free - [id number] Implanted:Qty: 1 on 04/30/2019 by Bandar Henley MD at [facility] Explanted:04/21 by Referral, Self (Quantity not on file) Right: Urethra [employer] [id number] 06/27/2023 [id number] / / [id number] Description:The patient was been instructed to remove the stent by pulling on the string in 3-4 days' Insurance [employer] OOS [employer] CHOICE [employer] ACCESS BLUE ACCESS OOS BLUE ACCESS OOS Care Teams Account Development Specialist Relationship Specialty Start Date End Date Lissy Zuñiga NP [address] [place] [id number] PCP - General Nurse Practitioner 09/01/23
--- OUTSIDE RECORDS SUMMARY | 2024-09-30 03:18 | XMS_ITS | Patient Health Record ---
Author Organization [facility] Address [address] [place] [address] Care Team Providers Care Data Center Technician Name Role Phone Milagro Arellano Primary Care Provider Allergies Allergen (clinical drug ingredient) Drug/Non Drug Allergy documented on EMR Reaction Allergy Type Onset Date Status No Known Drug Allergy Unknown Drug Allergy Active Reason For Referral No Information Medications Medication SIG (Take, Route, Frequency, Duration) Notes Start Date End Date Status lamoTRIgine 200 MG 1 tablet Orally Once a day for 90 days Active QUEtiapine Fumarate 50 MG 1 tablet at be dtime Orally Once a day for 90 days Active amLODIPine Besylate 5 MG 1 tablet Orally Once a day for 90 days Active Rinvoq 15 MG Oral for 30 Days Active Social History Tobacco Use: Social History Observation Description Date Details (start date - stop date) Never Smoker NA - NA Dont use, Tobacco Use/Smoking Question Answer Notes Are you a nonsmoker Tobacco Control (Standard) Question Answer Notes Tobacco use: Nonsmoker Problems Problem Type SNOMED Code ICD Code Onset Dates Problem Status W/U Status Risk Notes Problem 38201655 Cyclothymia (F34.0) Active confirmed Encounters Encounter Location Date Provider Diagnosis [facility] [place] [address] 11/29/2023 Milagro Arellano Cyclothymia F34.0 [facility] [place] [address] 02/27/2024 Milagro Arellano Cyclothymia F34.0 [facility] [address] [place] [address] 06/05/2024 Milagro Arellano Cyclothymia F34.0 [facility] [place] [address] 09/04/2024 Milagro Arellano Cyclothymia F34.[address] [place] [address] 11/20/2023 Milagro Arellano Cyclothymia F34.0 [facility] [address] [place] [address] 02/12/2024 Milagro Arellano Cyclothymia F34.[address] [place] [address] 08/19/2024 Milagro Arellano Assessments Encounter Date Diagnosis (ICD Code) Assessment Notes Treatment Notes Treatment Clinical Notes Section Notes 09/04/2024 Cyclothymia (ICD-10 - F34.0) Continue current medications. Discussed adding Magnesium Glycinolate OTC for sleep. Continue services as scheduled. Labs completed recently. May self-administer medications or be administered own oral medications per [facility] protocols. Provided informed consent with understanding of side effects, adverse effects, risks and benefits as well as alternative treatments as previously discussed and with the above recommended medications & other aspects of the treatment program. Agrees to return sooner if symptoms worsen or suicidal or homicidal ideations occur. 06/05/2024 Cyclothymia (ICD-10 - F34.0) Continue current medications. Continue services as scheduled. Labs completed recently. May self-administer medications or be administered own oral medications per [facility] protocols. Provided informed consent with understanding of side effects, adverse effects, risks and benefits as well as alternative treatments as previously discussed and with the above recommended medications & other aspects of the treatment program. Agrees to return sooner if symptoms worsen or suicidal or homicidal ideations occur. 02/27/2024 Cyclothymia (ICD-10 - F34.0) Continue current medications. Continue services as scheduled. Labs completed recently. May self-administer medications or be administered own oral medications per [facility] protocols. Provided informed consent with understanding of side effects, adverse effects, risks and benefits as well as alternative treatments as previously discussed and with the above recommended medications & other aspects of the treatment program. Agrees to return sooner if symptoms worsen or suicidal or homicidal ideations occur. 02/12/2024 Cyclothymia (ICD-10 - F34.0) 11/29/2023 Cyclothymia (ICD-10 - F34.0) Continue current medications. Continue services as scheduled, following up with PCP, has an appointment soon. Labs completed recently. May self-administer medications or be administered own oral medications per [place] protocols. Provided informed consent with understanding of side effects, adverse effects, risks and benefits as well as alternative treatments as previously discussed and with the above recommended medications & other aspects of the treatment program. Agrees to return sooner if symptoms worsen or suicidal or homicidal ideations occur. 11/20/2023 Cyclothymia (ICD-10 - F34.0) Plan Of Treatment Pending Test Test Name Order Date Hemoglobin A1c* 03/10/2023 Vitamin B12* 03/10/2023 CBC With Differential/Platelet* 03/10/20 23 Vitamin D, 25-Hydroxy* 03/10/2023 TSH+Free T4* 03/10/2023 Lipid Panel* 03/10/2023 Insurance Providers Payer Name Payer Address Payer Phone Subscriber Number Group Number Insured Name Patient Relationship to Insured Coverage Start Date Coverage End Date [facility] [address] [place] [address] [id number] Bill Cardoza Self - patient is the insured 3 Medical (General) History Medical History History ICD Code Hypertension Surgical History Surgery Date(Month/Year)
--- OUTSIDE RECORDS SUMMARY | 2024-09-30 03:18 | XMS_ITS ---
Author Organization [facility] Address [address] [place] [address] Care Team Providers Care Machine Operator Transplanter Name Role Phone Milagro Arellano Primary Care Provider Allergies Allergen (clinical drug ingredient) Drug/Non Drug Allergy documented on EMR Reaction Allergy Type Onset Date Status No Known Drug Allergy Unknown Drug Allergy Active REASON FOR VISIT f/u Medications Medication SIG (Take, Route, Frequency, Duration) [...] stop date) Never Smoker NA - NA Tobacco Control (Standard) Question Answer Notes Tobacco use: Nonsmoker Encounters Encounter Location Date Provider Diagnosis [address] [place] [address] 09/04/2024 Milagro Arellano Cyclothymia F34.0 Assessments Encounter Date Diagnosis (ICD Code) Assessment Notes Treatment Notes Treatment Clinical Notes Section Notes 09/04/2024 Cyclothymia (ICD-10 - F34.0) Continue current medications. Discussed adding Magnesium Glycinolate OTC for sleep. Continue services as scheduled. Labs completed recently. May self-administer medications or be administered own oral medications per [place] protocols. Provided informed consent with understanding of side effects, adverse effects, risks and benefits as well as alternative treatments as previously discussed and with the above recommended medications & other aspects of the treatment program. Agrees to return sooner if symptoms worsen or suicidal or homicidal ideations occur. Plan Of Treatment Medication Medication Name Sig Start Date Stop Date Notes lamoTRIgine 200 MG 1 tablet Orally Once a day for 90 days QUEtiapine Fumarate 50 MG 1 tablet at be dtime Orally Once a day for 90 days Treatment Notes Assessment Notes Cyclothymia Continue current medications. Discussed adding Magnesium Glycinolate OTC for sleep. Continue services as scheduled. Labs completed recently. May self-administer medications or be administered own oral medications per [place] protocols. Provided informed consent with understanding of side effects, adverse effects, risks and benefits as well as alternative treatments as previously discussed and with the above recommended medications & other aspects of the treatment program. Agrees to return sooner if symptoms worsen or suicidal or homicidal ideations occur. Next Appt Details Follow Up: 3 Months, Reason: Medication management - can be telehealth appt. Progress Notes * Jina AMADOROB:1980 (44 yo M)Acc No.[id number]:09/04/2024 Patient: Bill RUVALCABA Provider: Carlyn Arellano DNP, PMDENIZP-SEJAL, FINISHING INSPECTOR :1980 A ge:44 Y S ex:Male Date:09/04/2024 Address:[address] [place] [address] , [facility] Subjective: * Chief Complaints: * F /u * HPI: D epression Screening: PHQ-9 L ittle interest or pleasure in doing things?Not at all F eeling down, depressed, or hopeless N ot at all T rouble falling or staying asleep, or sleeping too much N ot at all F eeling tired or having little energy N ot at all P oor appetite or overeating S everal days F eeling bad about yourself or that you are a failure, or have let yourself or your family down N ot at all T rouble concentrating on things, such as reading the newspaper or watching television N ot at all M oving or speaking so slowly that other people could have noticed; or the opposite, being so fidgety or restless that you have been moving around a lot more than usual N ot at all T houghts that you would be better off or of hurting yourself in some way N ot at all T otal Score 1 I nterpretation M inimal Depression Intervention D epression Screening Findings N egative F ollow-Up for Depression N o Referral necessary, patient involved in behavioral health treatment . S creening: [place] Suicide Severity Rating Scale (LF) D o you want to initiate with S creener form I nterpretation: L ow Risk 6 . Suicide Behaviour: Have you ever done anything,started to do anything, or prepared to end your life? N o 2 . Suicidal Thoughts: Have you actually had any thoughts of killing yourself? N o 1 . Wish to be : Have you wished you were or wished you could go to sleep and not wake up? N o D o Not Use CSSRS Interpretation and Follow Up Plan: CSSRS Interpretation and Follow Up Plan CSSRS Interpretation and Follow Up Plan CSSRS Interpretation and Follow Up Plan. CSSRS Interpretation and Follow Up Plan M oderate or High risk requires selection of a follow up plan C SSRS No/Low: intervention not needed at this time P sych F/U: Patient presents for psychiatric follow-up visit. Changes since last visit?: Roberto breaux feels his medication is working well. No issues. Work is going good- staying busy. Can have trouble falling asleep. . Coping skills? R outine. Exercise- walking. Effectiveness of medications: Y es, patient reports they are effective. Medication Adherence: R eports taking medications as prescribed. Side effects to medications?: D enies side effects to medications. Sleep: , Difficulty staying asleep. Appetite A ppropriate appetite. Depression (10 = most depressed) 0 /10. Anxiety (10 = most anxious) M inimal. Anger/Irritability (10 is highest): 0 /10. Suicidal ideation: D enies suicidal ideation.. Homicidal ideation: D enies homicidal ideation.. Hallucinations D enies hallucinations. Medical concerns or hospitalizations? M onitoring BP and cholesterol. , No changes. Therapy? N one. Goals: M aintaining. Are you satisfied with the medication? Y es. A bnormal Involuntary Movement Scale: Denies : Facial and Oral Movements M uscles of Facial Expression 0 - None L ips and Perioral Area 0 - None J aw 0 - None T ongue 0 - None Denies : Extremity Movements U pper (arms, wrists, hands, fingers) 0 - None L ower (legs, knees, ankles, toes) 0 - None Denies : Trunk Movements N dejan, Shoulders and hips 0 - None Denies : Global Judgement S everity of abnormal movements overall 0 - None I ncapacitation due to abnormal movements 0 - None P atient's awareness of abnormal movements?0- No Awareness Denies : Dental Status C urrent problems with teeth and/or dentures?No A re dentures usually worn? N o E ndentia N o D o movements disappear with sleep? N o Denies : Subjective Experience . * ROS: P sych ROS: Constitutional D enies. E yes D enies. E ars/Nose/Mouth/Throat D enies. R espiratory D enies. A llergic/Immunologic D enies.?Cardiovascular D enies. G I D enies. G U D enies. M usculoskeletal D enies, t ics, tremors, abnormal motor movements.. N eurological D enies. I ntegumentary D enies. E ndocrine D enies. H ematological/Lymphatic D enies. ? P sychiatric- Mood instability- stable. * Medical History: * Surgical History: D enies Past Surgical History * Hospitalization/Major Diagno stic Procedure: D enies Past Hospitalization * Family History: F ather: alive. M other: alive. 1 brother(s) - healthy. 2 daughter(s) - healthy. .? 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 Tobacco Use - do not use T obacco Use: n one T obacco Use: T obacco Control (Standard) T obacco use: N onsmoker * Medications: T akingamLODIPine Besylate 5 MG Tablet 1 tablet Orally Once a day Rinvoq 15 MG Tablet Extended Release 24 Hour Oral QUEtiapine Fumarate 50 MG Tablet 1 tablet at bedtime Orally Once a day lamoTRIgine 200 MG Tablet 1 tablet Orally Once a day Medication List reviewed and reconciled with the patientTaking amLODIPine Besylate 5 MG Tablet 1 tablet Orally Once a day Taking Rinvoq 15 MG Tablet Extended Release 24 Hour Oral Taking QUEtiapine Fumarate 50 MG Tablet 1 tablet at bedtime Orally Once a day Taking lamoTRIgine 200 MG Tablet 1 tablet Orally Once a day Medication List reviewed and reconciled with the patient * Allergies: N o Known Drug Allergyno[Allergies Verified] Objective: * Vitals: * Examination: M ental Status Exam: SENSORIUM AND COGNITION Alert , Oriented to Person , Oriented to Place , Oriented to Time , Oriented to Situation. ATTENTION AND CONCENTRATION N o deficits. ATTITUDE AND BEHAVIOR C ooperative , Receptive. MEMORY I mmediate , Recent , Remote. AFFECT B road/Full. MOOD E uthymic. SPEECH QUANTITY A ppropriate. SPEECH QUALITY S pontaneous , Fluent , Appropriate volume.? THOUGHT PROCESS C oherent and goal directed. THOUGHT CONTENT A ppropriate - WNL , No evidence of delusional content , No reports paranoia. LANGUAGE A ppropriate- WNL. SUICIDAL IDEATION D enies suicidal ideation. HOMICIDAL IDEATION D enies homicidal ideation. HALLUCINATIONS D enies hallucinations. INSIGHT F air. JUDGMENT F air. FUND OF KNOWLEDGE F air. ABILITY TO PARTICIPATE IN TREATMENT M oderate. WILLINGNESS TO PARTICIPATE IN TREATMENT M oderate. SIGNIFICANT FINDINGS REGARDING MENTAL STATUS N one. ? Assessment: * Assessment: 1. C yclothymia - F34.0 (Primary) Plan: * Treatment: * Procedure Codes: * Follow Up: 3 Months (Reason: Medication management - can be telehealth appt.) * * STAFF Sign off status: Completed true * Provider: Carlyn Arellano DNP, PMP-, FINISHING INSPECTOR Date: 0 09/04/2024 Generated for Printing/Faxing/eTransmitting on: 0 09/30/2024 03:17 AM BELLSTAFF History and Physical Notes * HPI (History of Present Illness) Category Sub-Category Detail Notes Category Not es Depression Screening PHQ-9 Little inte rest or pleasure in doing things: Not at all Feeling down, depressed, or hopeless: No t at all Trouble falling or staying asleep, or sl eeping too much: Not at all Feeling tired or having little energy: N ot at all Poor appetite or overeating: Several day s Feeling bad about yourself o r that you are a failure, or have let yourself or your family down: Not at all Trouble concentrating on thi ngs, such as reading the newspaper or watching television: Not at all Moving or speaking so slowly that other people could have noticed; or the opposite, being so fidgety or restless that you have been moving around a lot more than usual: Not at all Thoughts that you would be b teresa off or of hurting yourself in some way: Not at all Total Score: 1 Interpretation: Minimal Depression Intervention Depression Screening Findings: N egative Follow-Up for Depression: No Referral necessary, patient involved in behavioral health treatment . Abnormal Involuntary Movement Scale Facial and Oral Movements Muscles of Facial Expression: 0- None Lips and Perioral Area: 0- None Jaw: 0- None Tongue: 0- None Extremity Movements Upper (arms, wrists, hands, fingers): 0- None Lower (legs, knees, ankles, toes): 0- No ne Trunk Movements Neck, Shoulders and hips: 0- Non e Global Judgement Severity of abnormal movements overall: 0- None Incapacitation due to abnormal movements : 0- None Patient's awareness of abnormal movement s: 0- No Awareness Dental Status Current problems with teeth and/ or dentures: No Are dentures usually worn?: No Endentia: No Do movements disappear with sleep?: No Subjective Experience Psych F/U Changes since last visit?: He fe els his medication is working well. No issues. Work is going good- staying busy. Can have trouble falling asleep. Effectiveness of medications: Yes, patie nt reports they are effective Medication Adherence: Reports taking med ications as prescribed Side effects to medications?: Denies dominik e effects to medications Goals: Maintaining Coping skills? Routine. Exercise- w alking Sleep: , Difficulty staying asleep Appetite Appropriate appetite Depression (10 = most depressed) 0/10 Anxiety (10 = most anxious) Minimal Anger/Irritability (10 is highest): 0/10 Suicidal ideation: Denies suicidal idea tion. Homicidal ideation: Denies homicidal pako ation. Hallucinations Denies hallucination s Medical concerns or hospitalizations? Mo nitoring BP and cholesterol. , No changes Therapy? None Are you satisfied with the medication? Y es Screening [place] Suicide Sev erity Rating Scale (LF) Do you want to initiate with: Screener form Interpretation:: Low Risk 6. Suicide Behavior Question: Have you ever done anything,started to do anything, or prepared to end your life?: No 2. Suicidal Thoughts: Have you actually had any thoughts of killing yourself?: No 1. Wish to be : Have you wished you were or wished you could go to sleep and not wake up?: No Do Not Use CSSRS Interpretation and Follow Up Plan CSSRS Interpretation and Follow Up Plan Moderate or High risk requires selection of a follow up plan: CSSRS No/Low: intervention not needed at this time Examination Category Sub-Category Detail Notes Category Not es Mental Status Exam SENSORIUM AND COGNITION Alert , Oriented to Person , Oriented to Place , Oriented to Time , Oriented to Situation ATTENTION AND CONCENTRATION No deficits ATTITUDE AND BEHAVIOR Cooperative , Rece ptive MEMORY Immediate , Recent , Remote AFFECT Broad/Full MOOD Euthymic SPEECH QUANTITY Appropriate SPEECH QUALITY Spontaneous , Fluent , Appropriate volume THOUGHT PROCESS Coherent and goal di rected THOUGHT CONTENT Appropriate - WNL , No evidence of delusional content , No reports paranoia SUICIDAL IDEATION Denies suicidal idea tion HOMICIDAL IDEATION Denies homicidal pako ation HALLUCINATIONS Denies hallucination s INSIGHT Fair JUDGMENT Fair FUND OF KNOWLEDGE Fair ABILITY TO PARTICIPATE IN TREATMENT Mode rate WILLINGNESS TO PARTICIPATE IN TREATMENT Moderate SIGNIFICANT FINDINGS REGARDI NG MENTAL STATUS None LANGUAGE Appropriate- WNL
--- OUTSIDE RECORDS SUMMARY | 2024-09-30 03:18 | XMS_ITS | Encounter Summary ---
Author Organization [facility] [employer] [facility] [place] Address [address] [place] [address] Phone Care Team Providers Care Chicken Boner Name Role Phone Genny Moore DO Primary Care Provider + Lissy Zuñiga NP Primary Care Provider [phone] Encounter Details Date Type Department Care Team (Late st Contact Info) Description 03/19/2019 Orders Only [facility] ([facility]) - [facility] [address] [facility] 11th [place] [address] [place] [address] Beena Dupont MD [address] [place] [address] Research exam (Primary Dx) Social History Tobacco [...] on file 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
--- OUTSIDE RECORDS SUMMARY | 2024-09-30 03:18 | XMS_ITS | Clinical Summary ---
Author Organization [facility] Address [address] [place] [address] Care Team Providers Care Automotive General Sales Manager Name Role Phone TeresaGenny Primary Care Provider Social History Tobacco Use Types Packs/Day Years [...] - 19+ 3-dose series) 1997 COVID-19 Vaccine ( - 2023-2 5 season) 2024 11/12/2020, 10/22/2020 Influenza Adult [...] patient's age to complete this topic Insurance [facility] Care Teams Automotive General Sales Manager Relationship Specialty Start Date End Date Genny Moore DO PCP - General FAMILY PRACTICE 03/04/21
--- OUTSIDE RECORDS SUMMARY | 2024-09-30 03:18 | XMS_ITS | Clinical Summary ---
Author Organization [facility] Address [address] [place] [address] Care Team Providers Care Welder/Fitter Name Role Phone Lissy Zuñiga NP Primary Care Provider [phone] Allergies No known active allergies Medications lamoTRIgine [...] lenses. 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 Not visually significant at this time. Continue to monitor. Assessment & Plan (09/05/2018 8:30 AM BASEBALL INSPECTOR AND REPAIRER): -- NVS -- Observe Iris atrophy, right [...] is working or wants to try custom [place] lens If proceed with [place] lens - may need to decenter pupil after initial lens arrives (U3, 54, 47) Educated on I&R and proper care of lenses RTC prn, if decides to move forward with edgardo will schedule when lens arrives Assessment & Plan (09/05/2018 8:29 AM BASEBALL INSPECTOR AND REPAIRER): -- c/w HSV uveitis -- observe Chronic [...] leflunomide for RA Dr. Ram is his feather sawyer No inflammation on acyclovir (last flare 08/2018) Plan Continue acyclovir 400mg daily Q12m fu with Dr. Marie Assessment & Plan (10/06/2020 2:41 PM BASEBALL INSPECTOR AND REPAIRER): Quiet today with normal intraocular pressure (IOP). Continue 400 mg Acyclovir daily. Assessment & Plan (03/19/2020 3:50 PM CDT): Current ocular medications Acyclovir 400mg daily Rinvoq and leflunomide for RA Dr. Ram is his feather sawyer No inflammation on acyclovir (last flare 08/2018) Plan Continue acyclovir 400mg daily Q6m fu with Dr. 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 Maintain scheduled FUV with Dr. aBnks Assessment & Plan (09/05/2018 8:30 AM BASEBALL INSPECTOR AND REPAIRER): Symptoms and exam consistent with anterior uveitis [...] discussed Assessment & Plan (09/01/2018 3:49 PM BASEBALL INSPECTOR AND REPAIRER): Symptoms and exam consistent with anterior uveitis [...] Department Care Team Description 08/13/[address] [facility] [address] [place] [address] Nikki Kendrick RPh Prior Auth [...] on file Legal Sex Male 10:04 AM BASEBALL INSPECTOR AND REPAIRER Gender Identity Not on file Sexual Orientation [...] this topic Medical Devices Implanted Type Area Shaft Repairer Device Identifier Shelf Expiration Date Model / Serial / Lot [employer] [id number] Inlay [place] 6fr 28cm Pusher Fluoro Marker Atraumatic Insertion Latex Free - [id number] Implanted:Qty: 1 on 04/30/2019 by Bandar Henley MD at [facility] Explanted:04/21 by Referral, Self (Quantity not on file) Right: Urethra [employer] [id number] 06/27/2023 [id number] / / [id number] Description:The patient was been instructed to remove the stent by pulling on the string in 3-[address] [facility] [place] [address] [facility] OOS ANTHEM ACCESS CHOICE ANTHEM ACCESS BLUE ACCESS OOS BLUE ACCESS OOS Care Teams Welder/Fitter Relationship Specialty Start Date End Date Lissy Zuñiga NP [address] [place] [address] PCP - General Nurse Practitioner 09/01/23
--- OUTSIDE RECORDS SUMMARY | 2024-09-30 03:18 | XMS_ITS ---
Author Organization [facility] Address [address] [place] [address] Care Team Providers Care Process Developer Name Role Phone Milagro Arellano Primary Care Provider Allergies Allergen (clinical drug ingredient) Drug/Non Drug Allergy documented on EMR Reaction Allergy Type Onset Date Status No Known Drug Allergy Unknown Drug Allergy Active REASON FOR VISIT 3 Month Psych F/U & Med Refill Medications Medication SIG (Take, Route, Frequency, Duration) Notes Start Date End Date Status QUEtiapine Fumarate 50 MG 1 tablet at be dtime Orally Once a day for 90 days Active lamoTRIgine 200 MG 1 tablet Orally Once [...] Nonsmoker Encounters Encounter Location Date Provider Diagnosis [place] [address] [place] [address] 06/05/2024 Milagro Arellano Cyclothymia F34.0 Assessments Encounter Date Diagnosis (ICD Code) Assessment Notes Treatment Notes Treatment Clinical Notes Section Notes 06/05/2024 Cyclothymia (ICD-10 - F34.0) Continue current medications. Continue services as scheduled. Labs completed recently. May self-administer medications or be administered own oral medications per [facility] [place] protocols. Provided informed consent with understanding of side effects, adverse effects, risks and benefits as well as alternative treatments as previously discussed and with the above recommended medications & other aspects of the treatment program. Agrees to return sooner if symptoms worsen or suicidal or homicidal ideations occur. Plan Of Treatment Medication Medication Name Sig Start Date Stop Date Notes QUEtiapine Fumarate 50 MG 1 tablet at be dtime Orally Once a day for 90 days lamoTRIgine 200 MG 1 tablet Orally Once a day for 90 days Treatment Notes Assessment Notes Cyclothymia Continue current med ications. Continue services as scheduled. Labs completed recently. May self-administer medications or be administered own oral medications per [facility] protocols. Provided informed consent with understanding of [...] Notes * Jina AMADOROB:1980 (44 yo M)Acc No.[id number]:06/05/2024 Patient: Bill RUVALCABA Provider: Carlyn Arellano DNP, PMDENIZP-SEJAL, SEWER INSPECTOR :1980 A ge:44 Y S ex:Male Date:06/05/2024 Address:[address] [place] [address] , [facility] Subjective: * Chief Complaints: * 3 Month Psych F/U & Med Refill * HPI: D epression Screening: PHQ-9 L [...] in behavioral health treatment . S creening: [place] Suicide Severity Rating Scale (LF) D o [...] sleep and not wake up? N o C SSRS Interpretation and Follow Up Plan: CSSRS Interpretation [...] working well. No issues. Work is going good. He states dad is going through health concerns- dad has cancer. Dad had stomach removal. Doing better. . Goals: M aintaining. Coping skills? R outine. Exercise- walking. Effectiveness of medications: Y es, patient reports they are effective. Medication Adherence: R eports taking medications as prescribed. Side effects to medications?: D enies side effects to medications. Sleep: A ppropriate sleep. Appetite A ppropriate appetite. Depression (10 = most depressed) 0 /10. Anxiety (10 = most anxious) M inimal. Anger/Irritability (10 is highest): 0 /10. Suicidal ideation: D enies suicidal ideation.. Homicidal ideation: D enies homicidal ideation.. Hallucinations D enies hallucinations. Medical concerns or hospitalizations? M onitoring BP and cholesterol. . Therapy? N one. Are you satisfied with the medication? 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 No issues. Work is going good. He states dad is going through health concerns- dad has cancer. Dad had stomach removal. Doing better. Effectiveness of medications: Yes, patie nt reports they are effective Medication Adherence: Reports taking med ications as prescribed Side effects to medications?: Denies dominik e effects to medications Goals: Maintaining Coping skills? Routine. Exercise- w alking Sleep: Appropriate sleep Appetite Appropriate appetite Depression (10 = most depressed) 0/10 Anxiety (10 = most anxious) Minimal Anger/Irritability (10 is highest): 0/10 Suicidal ideation: Denies suicidal idea tion. Homicidal ideation: Denies homicidal pako ation. Hallucinations Denies hallucination s Medical concerns or hospitalizations? Mo nitoring BP and cholesterol. Therapy? None Are you satisfied with the medication? Y es Screening [place] Suicide Sev erity Rating Scale (LF) Do [...]
[2024-09-30] MEDS: KETOROLAC 15 MG/ML VIAL (*BKC) IV PUSH (10:54)
[2024-09-30] MEDS: LACTATED RINGERS 1,000 ML 30 ML IV CONT ×2 (10:54→12:51)
[2024-09-30] MEDS: ACETAMINOPHEN 500 MG TABLET 1000 MG PO (10:55)
--- NOTE | 2024-09-30 11:59 | P.PNAN_ITS ---
Anes - Initial Pre Proc Eval Procedure: Operation Date: 09/30/24 12:00 Proposed Procedures p Open Umbilical Hernia Repair, Possible Mesh - Alexia Zelaya MD Date/Time: 09/30/24 11:59 Surgeon: Alexia Zelaya MD Pre Op Diagnosis: Umbilical Hernia Patient Data Age: 44 Gender: M Height: 15.24 cm Weight: 95.4 kg Last Vital Signs Temp 97.3 F L 09/30/24 10:51 Pulse 67 09/30/24 10:51 BP 139/78 09/30/24 10:51 Pulse Ox 98 09/30/24 10:51 O2 Del Method Room Air 09/30/24 10:51 Allergies Allergy/AdvReac Type Severity Reaction Status Date / Time No Known Allergies Allergy Verified 09/18/24 13:44 Home Medications ?Medication ?Instructions ?Recorded ?Confirmed ?Type acyclovir 400 mg tablet 400 mg PO HS 08/08/19 09/18/24 History lamotrigine 200 mg tablet 200 mg PO HS 08/08/19 09/18/24 History (Lamictal) quetiapine 50 mg tablet 50 mg PO HS 06/09/23 09/18/24 History amlodipine 5 mg tablet 5 mg PO HS 09/18/24 09/18/24 History omeprazole 20 mg capsule,delayed 20 mg PO HS 09/18/24 09/18/24 History release upadacitinib 15 mg tablet,extended 15 mg PO HS 09/18/24 09/18/24 History release 24 hr (Rinvoq) Patient hx anesthesia problems: none Family hx anesthesia problems: none Results Review: All pre-operative results and documents have been reviewed as part of the pre- operative evaluation. [facility] Past Medical History Medical History Hematuria Acute nonintractable headache Rheumatoid arthritis Bilateral hand pain Rheumatoid arthritis with rheumatoid factor of multiple sites without organ or systems involvement (~1999) Kidney stones Depression Arthritis Surgical History Surgical History History of rotator cuff surgery History of sinus surgery Social History Social History Smoking status: Never smoker Second hand tobacco smoke exposure: No Alcohol intake: current Drinks per week: 2 Alcohol use details: 1-2 a week Substance use: never Substance use type: does not use Living arrangements: with family Occupation/Education: occupation Gender identity (if verbalized by the patient): Male Spiritual care concerns: No Agree to blood products: Yes Anes - Eval Final PreProcedure Day of Procedure 09/30/24 11:59 Patient weight: normal Lungs: normal air movement Airway: Mallampati scale class II Neurological: alert and oriented Last oral intake: >/= 8 hours ASA classification: II Emergent: no Anesthetic plan: proceed Anesthesia type and monitoring: general LMA and standard monitoring Results Review: All pre-operative results and documents have been reviewed as part of the pre- operative evaluation. HTN, pt walks track daily without cp or sob. Informed Consent: The patient's anesthetic plan and its attendant risks and benefits were discussed with the patient/family/POA. Questions were solicited and answers provided to the satisfaction of the patient/family/POA.
--- NOTE | 2024-09-30 12:00 | WPDHPUPDATE1 ---
History and Physical Update Update Date/Time: 09/30/24 12:00 History and Physical has been reviewed, including an updated exam of the patient. There are NO changes in the patient's condition. Risks, benefits, and alternatives have been discussed and questions answered. Patient agrees to proceed with procedure.
[2024-09-30] MEDS: BUPIVACAINE/EPINEPHRINE 0.5% 30 ML VIAL INFILTRATE (12:04)
[2024-09-30] MEDS: ceFAZolin 2 GM/D5W 50 ML 2 GM/50 ML BAG IVPB (12:04)
--- NOTE | 2024-09-30 12:53 | W.PM.PROC2 ---
Procedure Note - Detailed Date of Procedure 09/30/24 Pre-op Diagnosis Umbilical Hernia Post-op Diagnosis Same Procedure Performed Open repair umbilical hernia with defect measuring 1.5 cm Surgeon Alexia Zelaya MD Anesthesia General and Local Indications 44-year-old male presenting to the office with a small umbilical hernia. Patient reports pain and pressure in the area that has been worsening over time. Findings 1.5 cm umbilical hernia with incarcerated preperitoneal fat Description of Procedure The patient was taken to the operating room and placed in the supine position. After adequate induction of general anesthesia, the patient was prepped and draped in the normal sterile fashion. A time-out was then done to verify the patient's identity, as well as the procedure being performed. I began by localizing the area and around this periumbilical hernia. I then made a curvilinear incision in the infraumbilical area. This was carried down to the level of the fascia. At this point, I was able to separate the umbilicus off the underlying hernia. Once off I was able to retract the umbilicus superior. There was noted to be a small defect with a moderate amount of incarcerated preperitoneal fat. I was able to reduce this preperitoneal fat back into the abdominal cavity. This left a 1.5 cm defect. I was able to close this defect primarily with interrupted 0 Ethibond sutures. I then reapproximated the umbilicus to our fascial repair with a 3-0 Vicryl U-stitch. Further local anesthetic was placed. The subcutaneous tissue was then closed with 3-0 Vicryl suture. The skin was closed with 4-0 Monocryl subcuticular suture. Dermabond was then placed on the wound. The patient tolerated the procedure well was extubated postoperatively. He will be transferred to the recovery room in stable condition. Estimated Blood Loss 5 Pathology None sent Complications No immediate complications Condition Stable Disposition PACU [facility] Billing Surgery - Charge Forward: Surgery Billing
[2024-09-30] MEDS: oxyCODONE HCL (*CRX) 5 MG TAB IR PO (14:25)
== END 2024-09-30 14:57 | disposition home or self-care (01) ==
PROVIDERS: PCP Nurse Practitioner Family; Visit Provider Surgery
PROC: (CPT 49592; principal; 2024-09-30 12:00)
DX: K42.9 Umbilical hernia without obstruction or gangrene (principal); I10 Essential (primary) hypertension; K21.9 Gastro-esophageal reflux disease without esophagitis; M05.79 Rheumatoid arthritis with rheumatoid factor of multiple sites without organ or systems involvement; F32.A Depression, unspecified; Z98.890 Other specified postprocedural states; Z87.442 Personal history of urinary calculi
CPT/HCPCS: 49592; A9270; J0690; J1100; J1885; J2003; J2250; J2405; J2704; J3010; J7120